=== PATIENT | male | born 1970 | race Caucasian/White ===

== ENCOUNTER 2017-01-17 14:48 | Emergency (ER) | payer SELFPAY ==
[~2017-01-17] VITALS: Ht 172.7 cm; Wt 75.0 kg
[2017-01-17 14:49] VITALS: BP 130/89
== END 2017-01-17 16:55 | disposition left against medical advice (07) ==
LOC: ER 14:53
DX: F10.129 Alcohol abuse with intoxication, unspecified (principal); Z53.21 Procedure and treatment not carried out due to patient leaving prior to being seen by health care provider